=== PATIENT | female | born 1975 | race American Indian/Alaskan Native ===

== ENCOUNTER 2021-10-07 22:30 | Emergency (ER) | payer MEDICARE ==
--- NOTE | 2021-10-08 06:47 | Emergency Department Report ---
HPI - General Chief Complaint: Sickle Cell Crisis - HPI HPI: Room 38 The patient is a 46-year-old female present with chief complaint of sickle cell pain. Patient has a history of sickle cell disease and states approximate 2 days ago she developed pain in both of her thighs. Patient states the pain is consistent with her previous sickle cell pain crises. Patient gives her pain a score of 9/10. Patient denies history of fever ED Past Medical Hx - Past Medical History Previous Medical History?: Yes Hx Sickle Cell Disease: Yes - Surgical History Additional Surgical History: , port - Family History Family history: no significant - Social History Smoking Status: Current Every Day Smoker (1 pack/day) Substance Use Type: None (Denies illicit drug use), Alcohol (Occasional) - Medications Home Medications: Home Medications Medication Instructions Recorded Confirmed Last Taken Type HYDROcodone/APAP 5-325 [[place] 1 - 2 each PO Q6HR PRN #20 tablet 10/08/21 Unknown Rx 5/325] Ibuprofen [Motrin 800 MG tab] 800 mg PO Q8HR PRN #20 tablet 10/08/21 Unknown Rx ED Review of Systems ROS: Stated complaint: Sickle cell crisis, L leg pain Other details as noted in HPI Constitutional: denies: fever Eyes: denies: eye pain ENT: denies: throat pain Respiratory: no symptoms reported Cardiovascular: denies: chest pain Endocrine: no symptoms reported Gastrointestinal: denies: abdominal pain Genitourinary: denies: dysuria Musculoskeletal: denies: back pain Neurological: denies: headache Hematological/Lymphatic: other (Sickle cell pain crisis) Physical Exam - Physical Exam Vital Signs: Vital Signs 10/08/21 10/08/21 01:25 06:29 Temperature 98.3 F Pulse Rate 99 H 91 H Respiratory 16 17 Rate Blood Pressure 138/68 103/51 [Right] O2 Sat by Pulse 95 99 Oximetry Physical Exam: GENERAL: The patient is well-developed well-nourished female lying on stretcher not appearing to be in acute distress. [] HEENT: Normocephalic. Atraumatic. Extraocular motions are intact. Patient has moist mucous membranes. NECK: Supple. Trachea midline CHEST/LUNGS: Clear to auscultation. There is no respiratory distress noted. HEART/CARDIOVASCULAR: Regular. There is no tachycardia. There is no gallop rub or murmur. 2+ DPs bilateral ABDOMEN: Abdomen is soft, nontender. Patient has normal bowel sounds. There is no abdominal distention. SKIN: There is no rash. There is no edema. There is no diaphoresis. NEURO: The patient is awake, alert, and oriented. The patient is cooperative. The patient has no focal neurologic deficits. The patient has normal speech. GCS 15 MUSCULOSKELETAL: There is no evidence of acute injury. ED Course Vital Signs 10/08/21 10/08/21 01:25 06:29 Temperature 98.3 F Pulse Rate 99 H 91 H Respiratory 16 17 Rate Blood Pressure 138/68 103/51 [Right] O2 Sat by Pulse 95 99 Oximetry - Reevaluation(s) Reevaluation #1: 10/08/21 11:44 Patient states he feels okay ED Medical Decision Making - Lab Data Result diagrams: 10/08/21 Unknown 10/08/21 Unknown Laboratory Tests 10/08/21 10/08/21 10/08/21 10:09 Unknown Unknown WBC 12.0 H RBC 3.97 Hgb 10.2 Hct 31.0 MCV 78 L MCH 26 L MCHC 33 RDW 22.6 H Plt Count 204 Lymph % (Auto) 15.2 [place] % (Auto) 7.7 H Eos % (Auto) 2.2 Baso % (Auto) 0.5 Lymph # (Auto) 1.8 [place] # (Auto) 0.9 H Eos # (Auto) 0.3 Baso # (Auto) 0.1 Seg Neutrophils % 74.4 H Seg Neutrophils # 8.9 H Percent Retic 5.56 H Sodium 141 Potassium 4.5 Chloride 107.5 H Carbon Dioxide 22 Anion Gap 16 BUN 6 L Creatinine 0.4 L Estimated GFR > 60 BUN/Creatinine Ratio 15 Glucose 91 Calcium 8.6 HCG, Qual Urine Color Yellow Urine Turbidity Clear Urine pH 8.0 H Ur Specific [place] 1.008 Urine Protein <15 mg/dl Urine Glucose (UA) Neg Urine Ketones Neg Urine Blood Neg Urine Nitrite Neg Urine Bilirubin Neg Urine Urobilinogen < 2.0 Ur Leukocyte Esterase Neg Urine WBC (Auto) 1.0 Urine RBC (Auto) 1.0 U Epithel Cells (Auto) 2.0 10/08/21 Unknown WBC RBC Hgb Hct MCV MCH MCHC RDW Plt Count Lymph % (Auto) [place] % (Auto) Eos % (Auto) Baso % (Auto) Lymph # (Auto) [place] # (Auto) Eos # (Auto) Baso # (Auto) Seg Neutrophils % Seg Neutrophils # Percent Retic Sodium Potassium Chloride Carbon Dioxide Anion Gap BUN Creatinine Estimated GFR BUN/Creatinine Ratio Glucose Calcium HCG, Qual Negative Urine Color Urine Turbidity Urine pH Ur Specific [place] Urine Protein Urine Glucose (UA) Urine Ketones Urine Blood Urine Nitrite Urine Bilirubin Urine Urobilinogen Ur Leukocyte Esterase Urine WBC (Auto) Urine RBC (Auto) U Epithel Cells (Auto) - Differential Diagnosis Sickle cell pain crisis Critical care attestation.: If time is entered above; I have spent that time in minutes in the direct care of this critically ill patient, excluding procedure time. ED Disposition Clinical Impression: Sickle cell pain crisis Disposition: HOME / SELF CARE / HOMELESS Is pt being admited?: No Does the pt Need Aspirin: No Condition: Stable Additional Instructions: Return to the emergency department should you develop worsening symptoms, inability to tolerate food or liquids, high fever or any other concerns Prescriptions: Ibuprofen [Motrin 800 MG tab] 800 mg PO Q8HR PRN #20 tablet PRN Reason: Pain, Moderate (4-6) HYDROcodone/APAP 5-325 [[place] 5/325] 1 - 2 each PO Q6HR PRN #20 tablet PRN Reason: Pain Referrals: [facility] MD JACQUES [Primary Care Provider] - 3-5 Days HERMELINDO LOYOLA MD [Staff Physician] - 3-5 Days (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 Please follow-up with him for further evaluation) Time of Disposition: 11:47
[2021-10-08] MEDS ORDERED: D5W/0.2% NACL 1,000 ML IV SCH (07:00)
[2021-10-08 07:41] LABS: Basophils # (Auto) 0.1 K/mm3 (0.0-0.1); Basophils % (Auto) 0.5 % (0.0-1.8); Eosinophils # (Auto) 0.3 K/mm3 (0.0-0.4); Eosinophils % (Auto) 2.2 % (0.0-4.3); Hemoglobin 10.2 gm/dl (10.1-14.3); Lymphocytes # (Auto) 1.8 K/mm3 (1.2-5.4); Lymphocytes % (Auto) 15.2 % (13.4-35.0); Mean Corpuscular HGB Conc 33 % (30-34); Mean Corpuscular Volume 78 fl (79-97); Monocytes # (Auto) 0.9 K/mm3 (0.0-0.8); Monocytes % (Auto) 7.7 % (0.0-7.3); Platelet Count 204 K/mm3 (140-440); Red Blood Count 3.97 M/mm3 (3.65-5.03)
[2021-10-08 07:42] LABS: Red Cell Distribution Width 22.6 % (13.2-15.2)
[2021-10-08] MEDS ORDERED: HYDROmorphone 1 MG/1 ML INJ IV SCH (08:00)
[2021-10-08 08:21] LABS: Blood Urea Nitrogen 6 mg/dL (7-17); Calcium 8.6 mg/dL (8.4-10.2); Hemolysis Index 51
[2021-10-08 08:30] LABS: BUN/Creatinine Ratio 15
[2021-10-08] MEDS ORDERED: HYDROmorphone 1 MG/1 ML INJ IV ONE ×2 (08:45→10:27)
[2021-10-08] MEDS ORDERED: ONDANSETRON 4 MG/2 ML INJ ONE (08:53)
[2021-10-08] MEDS ORDERED: KETOROLAC 30 MG/1 ML INJ ONE (08:53)
[2021-10-08] MEDS ORDERED: ONDANSETRON 4 MG/2 ML INJ IV SCH (09:00)
[2021-10-08] MEDS ORDERED: KETOROLAC 30 MG/1 ML INJ IV SCH (09:00)
[2021-10-08] MEDS ORDERED: HEPARIN 5,000 UNIT/1 ML VIAL ONE (10:16)
[2021-10-08 10:41] LABS: Bilirubin,Urine NEG (Negative); Blood,Urine NEG (Negative); Color,Urine Yellow (Yellow); Protein,Urine <15 mg/dL mg/dL (Negative); Urobilinogen,Urine < 2.0 mg/dL (<2.0)
[2021-10-08 13:31] VITALS: BP 130/70
== END 2021-10-08 13:32 | disposition home or self-care (01) ==
LOC: ED 22:30
DX: D57.219 Sickle-cell/Hb-C disease with crisis, unspecified (principal); F17.200 Nicotine dependence, unspecified, uncomplicated
CPT/HCPCS: 36415; 80048; 81001; 84703; 85025; 85045; 96374; 96375; 96376; 99283; J1170; J1644; J1885; J2405; J7042

== ENCOUNTER 2021-10-09 20:48 | Inpatient (IN) | payer MEDICARE ==
--- NOTE | 2021-10-09 21:02 | Event Note ---
ED Screening Note Date of service: 10/09/21 Time: 21:01 ED Screening Note: Patient is a 46-year-old -German female with a history of sickle cell anemia and sickle cell pain presents to the ED with complaint of acute exacerbation of her chronic pain characterized by low back pain, bilateral leg pain and severe left foot pain for the last 2 days. Patient states that she has been taking her regular medications which include MS Contin, Percocet 10 mg - 325 mg tablets, and ibuprofen tablets with no relief. Patient denies dizziness, syncope, fever, chills, fall, nausea and vomiting, chest pain, shortness of breath, cough, abdominal pain, dysuria, urinary frequency and urgency, change in vision, numbness and tingling or weakness of upper and lower extremities bilaterally or headache. This initial assessment/diagnostic orders/clinical plan/treatment(s) is/are subject to change based on patients health status, clinical progression and re- assessment by fellow clinical providers in the ED. Further treatment and workup at subsequent clinical providers discretion. Patient/guardian urged not to elope from the ED as their condition may be serious if not clinically assessed and managed. Initial orders include: CBC, CMP, reticulocyte count, chest x-ray, urinalysis
[2021-10-09 22:06] LABS: Bilirubin,Urine NEG (Negative); Blood,Urine NEG (Negative); Color,Urine Yellow (Yellow); Mucus,Urine FEW /HPF; Protein,Urine <15 mg/dL mg/dL (Negative); Urobilinogen,Urine < 2.0 mg/dL (<2.0)
[2021-10-09] MEDS ORDERED: diphenhydrAMINE 50 MG/ML VIAL IV ONE (22:09)
[2021-10-09] MEDS ORDERED: ONDANSETRON 4 MG/2 ML INJ IV ONE (22:09)
[2021-10-09] MEDS ORDERED: HYDROmorphone 1 MG/1 ML INJ IV ONE (22:09)
--- NOTE | 2021-10-09 22:18 | XRay Report ---
XR chest routine 2V INDICATION / CLINICAL INFORMATION: Pain. COMPARISON: 08/07/2008 FINDINGS: SUPPORT DEVICES: Left upper extremity PICC terminates over the cavoatrial junction. HEART /PULMONARY VASCULATURE: No significant abnormality. LUNGS / PLEURA: No significant pulmonary or pleural abnormality. No pneumothorax. ADDITIONAL FINDINGS: Diffuse sclerosis of the osseous structures. There is abnormal sclerosis of the humeral heads, may reflect osteonecrosis. Findings may be seen with sickle cell disease or other oste odystrophy. IMPRESSION: No acute cardiopulmonary findings. Signer Name: Alejandro Eubanks MD Signed: 10/09/2021 10:13 PM Workstation Name: [id number]
--- NOTE | 2021-10-09 22:59 | Emergency Department Report ---
ED General Adult HPI - General Chief complaint: Sickle Cell Crisis Stated complaint: SWOLLEN LEGS Time Seen by Provider: 10/09/21 21:54 Source: patient Mode of arrival: Ambulatory Limitations: No Limitations - History of Present Illness Initial comments: 46-year-old female with a past medical history of sickle cell SC presents to the hospital with complaints of pain secondary to sickle cell crisis. Patient was seen here on the with similar symptoms. Patient complaining of 10/10 pain to the upper back, bilateral legs, and left ankle swelling. Patient has a history of left ankle fractures status post repair. She states symptoms are typical of sickle cell crisis. She denies fever, chest pain, shortness of breath. She is currently taking MS Contin, Percocet, Phenergan, and Motrin without relief. Patient was seen here yesterday for the same symptoms and got better after 3 doses Dilaudid 1 mg and additional medications. She returns bec ause she continues to have significant pain. Patient's triage licensed practical nurse are affiliated with [facility] and she has another appointment scheduled for November. She is currently in the process of finding a alternative triage licensed practical nurse but is still able to receive her medication refills from her [facility] physicians. Patient does have a port to left arm - Related Data Previous Rx's Medication Instructions Recorded Last Taken Type HYDROcodone/APAP 5-325 [[place] 1 - 2 each PO Q6HR PRN #20 tablet 10/08/21 Unknown Rx 5/325] Ibuprofen [Motrin 800 MG tab] 800 mg PO Q8HR PRN #20 tablet 10/08/21 Unknown Rx Allergies Allergy/AdvReac Type Severity Reaction Status Date / Time No Known Allergies Allergy Verified 10/08/21 08:30 ED Review of Systems ROS: Stated complaint: SWOLLEN LEGS Other details as noted in HPI Comment: All other systems reviewed and negative ED Past Medical Hx - Past Medical History Hx Sickle Cell Disease: Yes - Surgical History Additional Surgical History: , port - Social History Smoking Status: Current Every Day Smoker Substance Use Type: None - Medications Home Medications: Home Medications Medication Instructions Recorded Confirmed Last Taken Type HYDROcodone/APAP 5-325 [[place] 1 - 2 each PO Q6HR PRN #20 tablet 10/08/21 Unknown Rx 5/325] Ibuprofen [Motrin 800 MG tab] 800 mg PO Q8HR PRN #20 tablet 10/08/21 Unknown Rx ED Physical Exam - General Limitations: No Limitations - Other Other exam information: General: No acute distress Head: Atraumatic Eyes: normal appearance ENT: Moist mucous membranes Neck: Normal appearance, no midline tenderness Chest: Clear to auscultation bilaterally CV: Regular rate and rhythm Abdomen: Soft, normal bowel sounds, nontender, nondistended, no rebound or guarding Back: Normal inspection, nonpainful to touch Extremity: Left ankle surgical scar noted, diffuse left ankle and foot swelling without warmth or erythema Neuro: Alert O x 3, no facial asymmetry, speech clear, no gross motor sensory deficit Psych: Appropriate behavior Skin: No rash ED Course Vital Signs 10/09/21 10/09/21 10/09/21 20:52 23:43 23:45 Temperature 97.5 F L Pulse Rate 98 H Respiratory 18 Rate Blood Pressure 128/72 97/54 97/54 O2 Sat by Pulse 99 100 Oximetry 10/10/21 10/10/21 10/10/21 00:01 00:15 00:31 Temperature Pulse Rate Respiratory Rate Blood Pressure 90/44 90/44 89/34 O2 Sat by Pulse 100 98 100 Oximetry 10/10/21 10/10/21 10/10/21 01:15 01:31 01:45 Temperature Pulse Rate Respiratory Rate Blood Pressure 96/42 85/40 91/47 O2 Sat by Pulse 98 99 99 Oximetry 10/10/21 10/10/21 10/10/21 02:15 02:31 02:45 Temperature Pulse Rate Respiratory Rate Blood Pressure 97/37 92/51 84/45 O2 Sat by Pulse 99 100 100 Oximetry 10/10/21 10/10/21 10/10/21 03:01 03:15 03:31 Temperature Pulse Rate Respiratory Rate Blood Pressure 83/42 82/40 82/42 O2 Sat by Pulse 98 98 99 Oximetry 10/10/21 10/10/21 10/10/21 03:45 04:01 04:15 Temperature Pulse Rate Respiratory Rate Blood Pressure 84/44 90/49 90/54 O2 Sat by Pulse 98 99 100 Oximetry - Reevaluation(s) Reevaluation #1: 10/10/21 04:31 Resting in supine patient is BP systolic in the 90s. Patient was arousable and ambulated to the bathroom. Upon return her systolic pressure 106. She was provided a third dose of Dilaudid due to persistent pain. She will be admitted to the hospitalist service for further management ED Medical Decision Making - Lab Data Result diagrams: 10/09/21 23:38 10/09/21 23:38 Lab Results 10/09/21 10/09/21 10/09/21 Range/Units 23:38 23:38 23:38 WBC 11.4 H (4.5-11.0) K/mm3 RBC 4.05 (3.65-5.03) M/mm3 Hgb 10.5 (10.1-14.3) gm/dl Hct 31.5 (30.3-42.9) % MCV 78 L (79-97) fl MCH 26 L (28-32) pg MCHC 33 (30-34) % RDW 22.6 H (13.2-15.2) % Plt Count 223 (140-440) K/mm3 Lymph % (Auto) 18.9 (13.4-35.0) % [place] % (Auto) 5.9 (0.0-7.3) % Eos % (Auto) 2.8 (0.0-4.3) % Baso % (Auto) 1.2 (0.0-1.8) % Lymph # (Auto) 2.1 (1.2-5.4) K/mm3 [place] # (Auto) 0.7 (0.0-0.8) K/mm3 Eos # (Auto) 0.3 (0.0-0.4) K/mm3 Baso # (Auto) 0.1 (0.0-0.1) K/mm3 Seg Neutrophils % 71.2 H (40.0-70.0) % Seg Neutrophils # 8.1 H (1.8-7.7) K/mm3 Percent Retic 5.02 H (0.78-2.58) % Sodium 139 (137-145) mmol/L Potassium 3.8 (3.6-5.0) mmol/L Chloride 103.9 (98-107) mmol/L Carbon Dioxide 24 (22-30) mmol/L Anion Gap 15 mmol/L BUN 11 (7-17) mg/dL Creatinine 0.5 L (0.6-1.2) mg/dL Estimated GFR > 60 ml/min BUN/Creatinine Ratio 22 % Glucose 106 H (65-100) mg/dL Calcium 8.5 (8.4-10.2) mg/dL Total Bilirubin 1.10 (0.1-1.2) mg/dL AST 26 (5-40) units/L ALT 15 (7-56) units/L Alkaline Phosphatase 117 (35-129) units/L Total Protein 7.2 (6.3-8.2) g/dL Albumin 4.2 (3.9-5) g/dL Albumin/Globulin Ratio 1.4 % HCG, Qual Negative (Negative) Urine Color (Yellow) Urine Turbidity (Clear) Urine pH (5.0-7.0) Ur Specific [place] (1.003-1.030) Urine Protein (Negative) mg/dL Urine Glucose (UA) (Negative) mg/dL Urine Ketones (Negative) mg/dL Urine Blood (Negative) Urine Nitrite (Negative) Urine Bilirubin (Negative) Urine Urobilinogen (<2.0) mg/dL Ur Leukocyte Esterase (Negative) Urine WBC (Auto) (0.0-6.0) /HPF Urine RBC (Auto) (0.0-6.0) /HPF U Epithel Cells (Auto) (0-13.0) /HPF Urine Mucus /HPF 10/09/21 Range/Units Unknown WBC (4.5-11.0) K/mm3 RBC (3.65-5.03) M/mm3 Hgb (10.1-14.3) gm/dl Hct (30.3-42.9) % MCV (79-97) fl MCH (28-32) pg MCHC (30-34) % RDW (13.2-15.2) % Plt Count (140-440) K/mm3 Lymph % (Auto) (13.4-35.0) % [place] % (Auto) (0.0-7.3) % Eos % (Auto) (0.0-4.3) % Baso % (Auto) (0.0-1.8) % Lymph # (Auto) (1.2-5.4) K/mm3 [place] # (Auto) (0.0-0.8) K/mm3 Eos # (Auto) (0.0-0.4) K/mm3 Baso # (Auto) (0.0-0.1) K/mm3 Seg Neutrophils % (40.0-70.0) % Seg Neutrophils # (1.8-7.7) K/mm3 Percent Retic (0.78-2.58) % Sodium (137-145) mmol/L Potassium (3.6-5.0) mmol/L Chloride (98-107) mmol/L Carbon Dioxide (22-30) mmol/L Anion Gap mmol/L BUN (7-17) mg/dL Creatinine (0.6-1.2) mg/dL Estimated GFR ml/min BUN/Creatinine Ratio % Glucose (65-100) mg/dL Calcium (8.4-10.2) mg/dL Total Bilirubin (0.1-1.2) mg/dL AST (5-40) units/L ALT (7-56) units/L Alkaline Phosphatase (35-129) units/L Total Protein (6.3-8.2) g/dL Albumin (3.9-5) g/dL Albumin/Globulin Ratio % HCG, Qual (Negative) Urine Color Yellow (Yellow) Urine Turbidity Clear (Clear) Urine pH 5.0 (5.0-7.0) Ur Specific [place] 1.014 (1.003-1.030) Urine Protein <15 mg/dl (Negative) mg/dL Urine Glucose (UA) Neg (Negative) mg/dL Urine Ketones Neg (Negative) mg/dL Urine Blood Neg (Negative) Urine Nitrite Neg (Negative) Urine Bilirubin Neg (Negative) Urine Urobilinogen < 2.0 (<2.0) mg/dL Ur Leukocyte Esterase Neg (Negative) Urine WBC (Auto) 5.0 (0.0-6.0) /HPF Urine RBC (Auto) 2.0 (0.0-6.0) /HPF U Epithel Cells (Auto) 5.0 (0-13.0) /HPF Urine Mucus Few /HPF - Radiology Data Radiology results: report reviewed XR chest routine 2V INDICATION / CLINICAL INFORMATION: Pain. COMPARISON: 08/07/2008 FINDINGS: SUPPORT DEVICES: Left upper extremity PICC terminates over the cavoatrial junction. HEART /PULMONARY VASCULATURE: No significant abnormality. LUNGS / PLEURA: No significant pulmonary or pleural abnormality. No pneumothorax. ADDITIONAL FINDINGS: Diffuse sclerosis of the osseous structures. There is abnormal sclerosis of the humeral heads, may reflect osteonecrosis. Findings may be seen with sickle cell disease or other osteodystrophy. IMPRESSION: No acute cardiopulmonary findings. - Medical Decision Making 46-year-old female presents to the hospital for the second day in a row due to persistent sickle cell related pain despite taking her home medications including MS Contin and Percocet. Patient follows with the [facility] but desires a new triage licensed practical nurse. Patient has elevated retake count with normal hemoglobin. No signs of infection, leukocytosis, or chest symptoms. Ch est x-ray unremarkable - Differential Diagnosis Anemia, sickle cell crisis Critical Care Time: No Critical care attestation.: If time is entered above; I have spent that time in minutes in the direct care of this critically ill patient, excluding procedure time. ED Disposition Clinical Impression: Sickle cell pain crisis, Intractable pain Disposition: ADMITTED INPATIENT Is pt being admited?: Yes Condition: Stable Time of Disposition: 04:33
[2021-10-09] MEDS ORDERED: D5W/0.2% NACL 1,000 ML IV SCH (23:00)
[2021-10-09] MEDS ORDERED: SODIUM CHLORIDE 0.9% 50 ML ONE (23:21)
[2021-10-09] MEDS: KETOROLAC 30 MG/1 ML INJ IV ONE ×2 (23:37→23:38)
[2021-10-10] LABS: Basophils # (Auto) 0.1 K/mm3 (0.0-0.1); Basophils % (Auto) 1.2 % (0.0-1.8); Eosinophils # (Auto) 0.3 K/mm3 (0.0-0.4); Eosinophils % (Auto) 2.8 % (0.0-4.3); Hematocrit 31.5 % (30.3-42.9); Hemoglobin 10.5 gm/dl (10.1-14.3); Lymphocytes # (Auto) 2.1 K/mm3 (1.2-5.4); Lymphocytes % (Auto) 18.9 % (13.4-35.0); Mean Corpuscular HGB Conc 33 % (30-34); Mean Corpuscular Volume 78 fl (79-97); Monocytes # (Auto) 0.7 K/mm3 (0.0-0.8); Monocytes % (Auto) 5.9 % (0.0-7.3); Platelet Count 223 K/mm3 (140-440); Red Blood Count 4.05 M/mm3 (3.65-5.03)
[2021-10-10 00:12] LABS: Alanine Aminotransferase 15 units/L (7-56); Albumin 4.2 g/dL (3.9-5); Blood Urea Nitrogen 11 mg/dL (7-17); Calcium 8.5 mg/dL (8.4-10.2); Hemolysis Index 2
[2021-10-10 00:17] LABS: BUN/Creatinine Ratio 22
[2021-10-10 01:03] LABS: Red Cell Distribution Width 22.6 % (13.2-15.2)
[2021-10-10] MEDS ORDERED: HYDROmorphone 1 MG/1 ML INJ IV ONE ×2 (01:07→04:31)
[2021-10-10] MEDS ORDERED: diphenhydrAMINE 50 MG/ML VIAL IV ONE (01:15)
[2021-10-10] MEDS ORDERED: MORPHINE 2 MG/1 ML INJ IV PRN (04:59)
[2021-10-10] MEDS ORDERED: ACETAMINOPHEN 325 MG TAB PO PRN (04:59)
[2021-10-10] MEDS ORDERED: ALBUTEROL 2.5 MG/3 ML NEBU IH PRN (04:59)
[2021-10-10] MEDS ORDERED: SODIUM CHLORIDE 0.45% 1000 ML 1,000 ML IV SCH (05:00)
--- NOTE | 2021-10-10 05:09 | History and Physical Report ---
History of Present Illness Date of examination: 10/10/21 Date of admission: 10/10/21 Chief complaint: Sickle cell crisis History of present illness: 46-year-old -[place] female with a history of sickle cell anemia and sickle cell pain presents to the ED with complaint of acute exacerbation of her chronic pain characterized by low back pain, bilateral leg pain and severe left foot pain for the last 2 days. Patient states that she has been taking her regular medications which include MS Contin, Percocet 10 mg - 325 mg tablets, and ibuprofen tablets with no relief. Patient denies dizziness, syncope, fever, chills, fall, nausea and vomiting, chest pain, shortness of breath, cough, abdominal pain, dysuria, urinary frequency and urgency, change in vision, numbness and tingling or weakness of upper and lower extremities bilaterally or headache. Patient's director of professional services are affiliated with [facility] and she has another appointment scheduled for November. She is currently in the process of finding a alternative director of professional services but is still able to receive her medication refills from her [facility] physicians. Patient does have a port to left arm In the emergency room patient hemoglobin is 10.5 hematocrit 31.5 and reticulocyte count is 5.02. She was going to admit the patient for pain management. Past History Past Medical History: other (Sickle cell crisis) Medications and Allergies Allergies Allergy/AdvReac Type Severity Reaction Status Date / Time No Known Allergies Allergy Verified 10/08/21 08:30 Home Medications Medication Instructions Recorded Confirmed Last Taken Type HYDROcodone/APAP 5-325 [[place] 1 - 2 each PO Q6HR PRN #20 tablet 10/08/21 Unknown Rx 5/325] Ibuprofen [Motrin 800 MG tab] 800 mg PO Q8HR PRN #20 tablet 10/08/21 Unknown Rx Active Meds: Active Medications Dextrose/Sodium Chloride (D5ns 0.2%) 1,000 mls @ 250 mls/hr IV DIRECT BIB Last Admin: 10/09/21 23:38 Dose: 250 mls/hr Review of Systems All systems: negative Musculoskeletal: other (10/10 pain to the upper back, bilateral legs, and left ankle swelling.) Exam - Constitutional Vitals: Temp Pulse Resp BP Pulse Ox 97.5 F L 98 H 20 106/68 100 10/09/21 20:52 10/09/21 20:52 10/10/21 04:38 10/10/21 04:30 10/10/21 04:30 General appearance: Present: no acute distress, well-nourished - EENT Eyes: Present: PERRL ENT: hearing intact, clear oral mucosa - Neck Neck: Present: supple, normal ROM - Respiratory Respiratory effort: normal Respiratory: bilateral: diminished - Cardiovascular Heart Sounds: Present: S1 & S2. Absent: rub, click - Extremities Extremities: pulses symmetrical, No edema Peripheral Pulses: within normal limits - Abdominal General gastrointestinal: Present: soft, non-tender, non-distended, normal bowel sounds Female genitourinary: Present: normal - Integumentary Integumentary: Present: clear, warm, dry - Musculoskeletal Musculoskeletal: gait normal, strength equal bilaterally - Psychiatric Psychiatric: appropriate mood/affect, intact judgment & insight - Neurologic Neurologic: CNII-XII intact, moves all extremities Results - Labs CBC & Chem 7: 10/09/21 23:38 10/09/21 23:38 Labs: Laboratory Last Values WBC 11.4 K/mm3 (4.5-11.0) H 10/09/21 23:38 RBC 4.05 M/mm3 (3.65-5.03) 10/09/21 23:38 Hgb 10.5 gm/dl (10.1-14.3) 10/09/21 23:38 Hct 31.5 % (30.3-42.9) 10/09/21 23:38 MCV 78 fl (79-97) L 10/09/21 23:38 MCH 26 pg (28-32) L 10/09/21 23:38 MCHC 33 % (30-34) 10/09/21 23:38 RDW 22.6 % (13.2-15.2) H 10/09/21 23:38 Plt Count 223 K/mm3 (140-440) 10/09/21 23:38 Lymph % (Auto) 18.9 % (13.4-35.0) 10/09/21 23:38 [place] % (Auto) 5.9 % (0.0-7.3) 10/09/21 23:38 Eos % (Auto) 2.8 % (0.0-4.3) 10/09/21 23:38 Baso % (Auto) 1.2 % (0.0-1.8) 10/09/21 23:38 Lymph # (Auto) 2.1 K/mm3 (1.2-5.4) 10/09/21 23:38 [place] # (Auto) 0.7 K/mm3 (0.0-0.8) 10/09/21 23:38 Eos # (Auto) 0.3 K/mm3 (0.0-0.4) 10/09/21 23:38 Baso # (Auto) 0.1 K/mm3 (0.0-0.1) 10/09/21 23:38 Seg Neutrophils % 71.2 % (40.0-70.0) H 10/09/21 23:38 Seg Neutrophils # 8.1 K/mm3 (1.8-7.7) H 10/09/21 23:38 Percent Retic 5.02 % (0.78-2.58) H 10/09/21 23:38 Sodium 139 mmol/L (137-145) 10/09/21 23:38 Potassium 3.8 mmol/L (3.6-5.0) 10/09/21 23:38 Chloride 103.9 mmol/L (98-107) 10/09/21 23:38 Carbon Dioxide 24 mmol/L (22-30) 10/09/21 23:38 Anion Gap 15 mmol/L 10/09/21 23:38 BUN 11 mg/dL (7-17) 10/09/21 23:38 Creatinine 0.5 mg/dL (0.6-1.2) L 10/09/21 23:38 Estimated GFR > 60 ml/min 10/09/21 23:38 BUN/Creatinine Ratio 22 % 10/09/21 23:38 Glucose 106 mg/dL (65-100) H 10/09/21 23:38 Calcium 8.5 mg/dL (8.4-10.2) 10/09/21 23:38 Total Bilirubin 1.10 mg/dL (0.1-1.2) 10/09/21 23:38 AST 26 units/L (5-40) 10/09/21 23:38 ALT 15 units/L (7-56) 10/09/21 23:38 Alkaline Phosphatase 117 units/L (35-129) 10/09/21 23:38 Total Protein 7.2 g/dL (6.3-8.2) 10/09/21 23:38 Albumin 4.2 g/dL (3.9-5) 10/09/21 23:38 Albumin/Globulin Ratio 1.4 % 10/09/21 23:38 HCG, Qual Negative (Negative) 10/09/21 23:38 Urine Color Yellow (Yellow) 10/09/21 Unknown Urine Turbidity Clear (Clear) 10/09/21 Unknown Urine pH 5.0 (5.0-7.0) 10/09/21 Unknown Ur Specific [place] 1.014 (1.003-1.030) 10/09/21 Unknown Urine Protein <15 mg/dl mg/dL (Negative) 10/09/21 Unknown Urine Glucose (UA) Neg mg/dL (Negative) 10/09/21 Unknown Urine Ketones Neg mg/dL (Negative) 10/09/21 Unknown Urine Blood Neg (Negative) 10/09/21 Unknown Urine Nitrite Neg (Negative) 10/09/21 Unknown Urine Bilirubin Neg (Negative) 10/09/21 Unknown Urine Urobilinogen < 2.0 mg/dL (<2.0) 10/09/21 Unknown Ur Leukocyte Esterase Neg (Negative) 10/09/21 Unknown Urine WBC (Auto) 5.0 /HPF (0.0-6.0) 10/09/21 Unknown Urine RBC (Auto) 2.0 /HPF (0.0-6.0) 10/09/21 Unknown U Epithel Cells (Auto) 5.0 /HPF (0-13.0) 10/09/21 Unknown Urine Mucus Few /HPF 10/09/21 Unknown Assessment and Plan VTE prophylaxis?: Chemical Plan of care discussed with patient/family: Yes - Patient Problems (1) Sickle cell pain crisis Current Visit: Yes Status: Acute Plan to address problem: Admitted patient to the [facility]. Put the patient on cardiac diet. Morphine 2 mg IV every 4 hours. Dilaudid 0.5 mg every 3 hours. Continue the home medication. Folic acid 1 mg p.o. daily. Outpatient follow-up with director of professional services (2) Intractable pain Current Visit: Yes Status: Acute Plan to address problem: Morphine 2 mg IV every 4 hours. Dilaudid 0.5 mg every 3 hours. Continue the home medication. Folic acid 1 mg p.o. daily. Outpatient follow-up with director of professional services (3) Tobacco abuse Current Visit: Yes Status: Acute Plan to address problem: Patient counseled regarding quitting smoking. If noted to be put on nicotine patch (4) DVT prophylaxis Current Visit: Yes Status: Acute Plan to address problem: Heparin 5000 units subcu every 12 hours for DVT prophylaxis. Pepcid 20 mg p.o. twice daily for GI prophylaxis. Patient is a full code
[2021-10-10] MEDS: IPRATROPIUM/ALBUTEROL SULFATE 3 ML AMPUL.NEB IH SCH ×3 (09:43→20:03)
[2021-10-10] MEDS ORDERED: NALOXONE 2 MG/2 ML INJ IV PRN (10:00)
[2021-10-10] MEDS ORDERED: HEPARIN 5,000 UNIT/1 ML VIAL SUB-Q SCH (10:00)
--- NOTE | 2021-10-10 10:13 | XRay Report ---
LEFT FOOT 2 VIEWS INDICATION: Assess for injury//lt foot pain. COMPARISON: None. IMPRESSION: There is mild distal soft tissue swelling. Bone mineralization appears borderline. No a cute osseous injury or significant joint pathology is detected. Signer Name: Aman Burgos Jr, MD Signed: 10/10/2021 10:08 AM Workstation Name: [id number]
[2021-10-10] MEDS: oxyCODONE /ACETAMINOPHEN 5-325MG TAB PO PRN (10:21)
[2021-10-10] MEDS: HYDROmorphone 1 MG/1 ML INJ IV PRN ×2 (10:21→19:11)
[2021-10-10] MEDS: MORPHINE 15 MG ER TAB PO SCH ×2 (11:29→22:00)
[2021-10-10] MEDS: FOLIC ACID 1 MG TAB PO SCH (11:37)
[2021-10-10] MEDS: HEPARIN 5,000 UNIT/1 ML VIAL SUB-Q SCH ×2 (11:39→19:10)
[2021-10-10] MEDS: FAMOTIDINE 20 MG TAB PO SCH ×2 (12:12→21:57)
--- NOTE | 2021-10-10 12:51 | Event Note ---
Date: 10/10/21 The patient was seen and evaluated this morning, and she was found to be hemodynamically stable. Adjustments were made to the patient's pain regimen in the setting of presumed sickle cell crisis. An x-ray of the left foot was performed due to significant swelling, and it was unremarkable for fracture.
[2021-10-11] MEDS: HYDROmorphone 1 MG/1 ML INJ IV PRN ×5 (00:43→16:44)
[2021-10-11] MEDS: ONDANSETRON 4 MG/2 ML INJ IV PRN ×2 (00:44→12:50)
[2021-10-11] MEDS: HEPARIN 5,000 UNIT/1 ML VIAL SUB-Q SCH ×2 (03:04→10:59)
[2021-10-11] MEDS: IPRATROPIUM/ALBUTEROL SULFATE 3 ML AMPUL.NEB IH SCH ×2 (04:59→09:38)
[2021-10-11] MEDS: oxyCODONE /ACETAMINOPHEN 5-325MG TAB PO PRN ×2 (07:51→16:52)
[2021-10-11 08:15] LABS: Blood Urea Nitrogen 9 mg/dL (7-17); Calcium 9.2 mg/dL (8.4-10.2); Hemolysis Index 26
[2021-10-11 08:22] LABS: BUN/Creatinine Ratio 18
[2021-10-11 09:56] LABS: Basophils # (Auto) 0.1 K/mm3 (0.0-0.1); Basophils % (Auto) 1.3 % (0.0-1.8); Eosinophils # (Auto) 0.2 K/mm3 (0.0-0.4); Eosinophils % (Auto) 2.1 % (0.0-4.3); Hematocrit 33.4 % (30.3-42.9); Hemoglobin 11.1 gm/dl (10.1-14.3); Lymphocytes # (Auto) 1.6 K/mm3 (1.2-5.4); Lymphocytes % (Auto) 17.5 % (13.4-35.0); Mean Corpuscular HGB Conc 33 % (30-34); Mean Corpuscular Volume 79 fl (79-97); Monocytes # (Auto) 0.5 K/mm3 (0.0-0.8); Monocytes % (Auto) 5.7 % (0.0-7.3); Platelet Count 227 K/mm3 (140-440); Red Blood Count 4.25 M/mm3 (3.65-5.03)
[2021-10-11 09:57] LABS: Red Cell Distribution Width 22.4 % (13.2-15.2)
[2021-10-11] MEDS: FOLIC ACID 1 MG TAB PO SCH (10:57)
[2021-10-11] MEDS: FAMOTIDINE 20 MG TAB PO SCH (10:57)
[2021-10-11] MEDS ORDERED: MORPHINE 15 MG ER TAB PO SCH (11:00)
[2021-10-11] MEDS: MORPHINE 15 MG ER TAB PO SCH (11:09)
[2021-10-11 13:12] VITALS: BP 107/69
== END 2021-10-11 19:00 | disposition home or self-care (01) | DRG 812 ==
LOC: ED 20:48 → 3A 10-10 05:00 → OBSVTOIN 10-10 12:09 → 3A 10-11 12:57
PROVIDERS: ADMIT Hospitalist; ATTEND Student in an Organized Health Care Education/Training Program
DX: D57.00 Hb-SS disease with crisis, unspecified (principal); Z20.822 Contact with and (suspected) exposure to COVID-19; F17.200 Nicotine dependence, unspecified, uncomplicated
CPT/HCPCS: 36415; 71046; 80048; 80053; 81001; 83010; 83615; 84703; 85025; 85045; 94640; 96374; 96375; 96376; 99283; 99285; G0378; J3490; J7042; J1170; J1200; J1644; J1885; J2405; J7030; U0003

== ENCOUNTER 2022-02-02 20:48 | Emergency (ER) | payer MEDICARE ==
[2022-02-03] MEDS ORDERED: SODIUM CHLORIDE 0.9% 1000 ML 1,000 ML IV ONE (03:34)
[2022-02-03] MEDS ORDERED: KETOROLAC 30 MG/1 ML INJ IV ONE ×2 (03:35→06:20)
[2022-02-03] MEDS ORDERED: diphenhydrAMINE 50 MG/ML VIAL IV ONE ×2 (03:35→06:20)
[2022-02-03] MEDS ORDERED: ACETAMINOPHEN 500 MG TAB PO ONE ×2 (03:35→06:20)
--- NOTE | 2022-02-03 04:08 | XRay Report ---
CHEST 2 VIEWS INDICATION / CLINICAL INFORMATION: sicke Cell crisis. COMPARISON: 10/09/2021 FINDINGS: SUPPORT DEVICES: Unchanged. HEART / MEDIASTINUM: No significant abnormality. LUNGS / PLEURA: No significant pulmonary or pleural abnormality. No pneumothorax. ADDITIONAL FINDINGS: No significant additional findings. IMPRESSION: 1. No acute findings. Signer Name: Nam Sanchez DO Signed: 02/03/2022 4:04 AM Workstation Name: [id number]
--- NOTE | 2022-02-03 04:13 | Emergency Department Report ---
ED General Adult HPI - General Chief complaint: Pain General Stated complaint: HURTING ALL OVER Time Seen by Provider: 02/03/22 04:04 Source: patient Mode of arrival: Ambulatory Limitations: No Limitations - History of Present Illness Initial comments: Patient 46-year-old female with history of sickle cell anemia. Patient states she is followed by sickle cell center at [facility]. Patient presents today for generalized body aches x3 days. Patient denies shortness of breath no dizziness or lightheadedness. There is been no fevers chills no productive cough. Patient denies history of chest syndrome. Current management includes MS Contin hydrocodone and fentanyl. Today's pain is rated at 5/10 achiness. Pain is relieved by nothing tried. Severity scale (0 -10): 10 - Related Data Previous Rx's Medication Instructions Recorded Last Taken Type HYDROcodone/APAP 5-325 [[place] 1 - 2 each PO Q6HR PRN #20 tablet 10/08/21 Unknown Rx 5/325] Ibuprofen [Motrin 800 MG tab] 800 mg PO Q8HR PRN #20 tablet 10/08/21 Unknown Rx Acetaminophen/Codeine [Tylenol 1 tab PO Q6H PRN #12 tab 02/03/22 Unknown Rx /Codeine # 3 tab] Ibuprofen [Motrin 800 MG tab] 800 mg PO Q8HR PRN #30 tablet 02/03/22 Unknown Rx diphenhydrAMINE [Benadryl CAP] 25 mg PO Q8HR PRN #30 capsule 02/03/22 Unknown Rx Allergies Allergy/AdvReac Type Severity Reaction Status Date / Time No Known Allergies Allergy Verified 10/08/21 08:30 ED Review of Systems ROS: Stated complaint: HURTING ALL OVER Other details as noted in HPI Constitutional: denies: chills, fever Eyes: denies: eye pain, eye discharge, vision change ENT: denies: ear pain, throat pain Respiratory: denies: cough, shortness of breath, wheezing Cardiovascular: denies: chest pain, palpitations Endocrine: no symptoms reported Gastrointestinal: denies: abdominal pain, nausea, vomiting, diarrhea Genitourinary: denies: urgency, dysuria, discharge Musculoskeletal: back pain, arthralgia. denies: joint swelling Skin: denies: rash, lesions Neurological: denies: headache, weakness, paresthesias Psychiatric: denies: anxiety, depression Hematological/Lymphatic: denies: easy bleeding, easy bruising ED Past Medical Hx - Past Medical History Hx Sickle Cell Disease: Yes - Surgical History Additional Surgical History: , port - Social History Smoking Status: Current Every Day Smoker Substance Use Type: None - Medications Home Medications: Home Medications Medication Instructions Recorded Confirmed Last Taken Type HYDROcodone/APAP 5-325 [[place] 1 - 2 each PO Q6HR PRN #20 tablet 10/08/21 U nknown Rx 5/325] Ibuprofen [Motrin 800 MG tab] 800 mg PO Q8HR PRN #20 tablet 10/08/21 Unknown Rx Acetaminophen/Codeine [Tylenol 1 tab PO Q6H PRN #12 tab 02/03/22 Unknown Rx /Codeine # 3 tab] Ibuprofen [Motrin 800 MG tab] 800 mg PO Q8HR PRN #30 tablet 02/03/22 Unknown Rx diphenhydrAMINE [Benadryl CAP] 25 mg PO Q8HR PRN #30 capsule 02/03/22 Unknown Rx ED Physical Exam - General Limitations: No Limitations General appearance: alert, in no apparent distress - Head Head exam: Present: normocephalic, normal inspection - Eye Eye exam: Present: PERRL, EOMI. Absent: conjunctival injection, nystagmus Pupils: Present: normal accommodation - ENT ENT exam: Present: mucous membranes moist, TM's normal bilaterally - Neck Neck exam: Present: normal inspection - Respiratory Respiratory exam: Present: normal lung sounds bilaterally. Absent: respiratory distress, wheezes, rales, rhonchi, stridor, chest wall tenderness - Cardiovascular Cardiovascular Exam: Present: regular rate, normal rhythm, normal heart sounds. Absent: systolic murmur, diastolic murmur, rubs, gallop - GI/Abdominal GI/Abdominal exam: Present: soft, normal bowel sounds. Absent: distended, tenderness, bruit, hernia - Rectal Rectal exam: Present: deferred - Extremities Exam Extremities exam: Present: normal inspection, full ROM, normal capillary refill. Absent: tenderness, pedal edema - Back Exam Back exam: Present: normal inspection. Absent: CVA tenderness (R), CVA tenderness (L) - Neurological Exam Neurological exam: Present: alert, oriented X3, CN II-XII intact, normal gait, reflexes normal. Absent: motor sensory deficit - Expanded Neurological Exam Expanded Patient oriented to: Present: person, place, time Speech: Present: fluid speech Motor strength exam: RUE: 5, LUE: 5, RLE: 5, LLE: 5 Best Eye Response ([place]): (4) open spontaneously Best Motor Response (Erasto): (6) obeys commands Best Verbal Response ([place]): (5) oriented [place] Total: 15 - Psychiatric Psychiatric exam: Present: normal affect, normal mood - Skin Skin exam: Present: warm, dry, intact, normal color. Absent: rash ED Course Vital Signs 02/02/22 22:42 Temperature 98.9 F Pulse Rate 94 H Respiratory 16 Rate Blood Pressure 125/71 [Right] O2 Sat by Pulse 96 Oximetry ED Medical Decision Making - Lab Data Result diagrams: 02/03/22 Unknown 02/03/22 Unknown Labs 02/03/22 02/03/22 Unknown Unknown WBC 11.6 H RBC 4.29 Hgb 11.2 Hct 32.7 MCV 76 L MCH 26 L MCHC 34 RDW 17.9 H Plt Count 157 Lymph % (Auto) 21.0 [place] % (Auto) 6.9 Eos % (Auto) 1.3 Baso % (Auto) 1.3 Lymph # (Auto) 2.4 [place] # (Auto) 0.8 Eos # (Auto) 0.1 Baso # (Auto) 0.2 H Seg Neutrophils % 69.5 Seg Neutrophils # 8.1 H Percent Retic 2.63 H Sodium 141 Potassium 3.8 Chloride 106.2 Carbon Dioxide 22 Anion Gap 17 BUN 8 Creatinine 0.4 L Estimated GFR > 60 BUN/Creatinine Ratio 20 Glucose 93 Calcium 8.7 Total Bilirubin 1.20 AST 20 ALT 10 Alkaline Phosphatase 84 Total Protein 6.9 Albumin 4.1 Albumin/Globulin Ratio 1.5 - Radiology Data Radiology results: report reviewed CHEST 2 VIEWS INDICATION / CLINICAL INFORMATION: sicke Cell crisis. COMPARISON: 10/09/2021 FINDINGS: SUPPORT DEVICES: Unchanged. HEART / MEDIASTINUM: No significant abnormality. LUNGS / PLEURA: No significant pulmonary or pleural abnormality. No pneumothorax. ADDITIONAL FINDINGS: No significant additional findings. IMPRESSION: 1. No acute findings. Signer Name: Nam Sanchez DO Signed: 02/03/2022 4:04 AM Workstation Name: [id number] Transcribed By: JENNIFER Dictated By: NAM SANCHEZ DO Electronically Authenticated By: NAM SANCHEZ DO Signed Date/Time: 02/03/22403 DD/ 2 TD/TT: - Medical Decision Making Chest x-ray negative no infiltrates no opacities patient declines IV. Ordered labs. Plan plan Benadryl, ibuprofen, follow-up with sickle cell clinic today at [facility]. . Critical care attestation.: If time is entered above; I have spent that time in minutes in the direct care of this critically ill patient, excluding procedure time. ED Disposition Clinical Impression: History of sickle cell anemia Disposition: HOME / SELF CARE / HOMELESS Is pt being admited?: No Does the pt Need Aspirin: No Condition: Stable Instructions: Sickle Cell Testing Additional Instructions: Follow-up with [facility] today. Take medications as prescribed, up with your primary doctor in 2 to 3 days. Return to emergency department should symptoms worsen. Prescriptions: diphenhydrAMINE [Benadryl CAP] 25 mg PO Q8HR PRN #30 capsule PRN Reason: sickel cell flare Ibuprofen [Motrin 800 MG tab] 800 mg PO Q8HR PRN #30 tablet PRN Reason: pain Acetaminophen/Codeine [Tylenol /Codeine # 3 tab] 1 tab PO Q6H PRN #12 tab PRN Reason: pain Referrals: [facility] [Outside] - 3-5 Days MATHIEU SOUZA MD [Referring] - 3-5 Days Forms: Work/School Release Form(ED) Time of Disposition: 06:29
[2022-02-03 05:54] LABS: Basophils # (Auto) 0.2 K/mm3 (0.0-0.1); Basophils % (Auto) 1.3 % (0.0-1.8); Eosinophils # (Auto) 0.1 K/mm3 (0.0-0.4); Eosinophils % (Auto) 1.3 % (0.0-4.3); Hematocrit 32.7 % (30.3-42.9); Hemoglobin 11.2 gm/dl (10.1-14.3); Lymphocytes # (Auto) 2.4 K/mm3 (1.2-5.4); Mean Corpuscular HGB Conc 34 % (30-34); Mean Corpuscular Volume 76 fl (79-97); Monocytes # (Auto) 0.8 K/mm3 (0.0-0.8); Monocytes % (Auto) 6.9 % (0.0-7.3); Platelet Count 157 K/mm3 (140-440); Red Blood Count 4.29 M/mm3 (3.65-5.03); Red Cell Distribution Width 17.9 % (13.2-15.2)
[2022-02-03 06:10] LABS: Alanine Aminotransferase 10 units/L (7-56); Albumin 4.1 g/dL (3.9-5); Blood Urea Nitrogen 8 mg/dL (7-17); Calcium 8.7 mg/dL (8.4-10.2); Hemolysis Index 29
[2022-02-03 06:13] LABS: BUN/Creatinine Ratio 20
[2022-02-03 09:30] VITALS: BP 126/82
== END 2022-02-03 09:30 | disposition home or self-care (01) ==
LOC: ED 20:48
DX: D57.1 Sickle-cell disease without crisis (principal); Z79.899 Other long term (current) drug therapy; F17.200 Nicotine dependence, unspecified, uncomplicated
CPT/HCPCS: 36415; 71046; 80053; 85025; 85045; 96361; 96374; 96375; 96376; 99284; J1200; J1642; J1885; J7030

== ENCOUNTER 2022-02-04 03:24 | Emergency (ER) | payer MEDICARE ==
[2022-02-04] MEDS ORDERED: SODIUM CHLORIDE 0.9% 1000 ML 1,000 ML IV ONE ×2 (07:32→11:45)
[2022-02-04] MEDS ORDERED: ONDANSETRON 4 MG/2 ML INJ IV ONE (07:32)
[2022-02-04] MEDS ORDERED: fentaNYL 100 MCG/2 ML INJ IV ONE (07:33)
--- NOTE | 2022-02-04 07:36 | Emergency Department Report ---
ED General Adult HPI - General Chief complaint: Sickle Cell Crisis Stated complaint: PAIN CRISIS Time Seen by Provider: 02/04/22 07:27 Source: patient Mode of arrival: Ambulatory Limitations: No Limitations - History of Present Illness Initial comments: Patient is 46-year-old female with history of sickle cell disease. Patient presented to the ER complaining of generalized body ache. Patient was seen here 2 days ago for similar symptoms and stated that her symptoms get better but it came back again. Patient denied any fever or chills. Patient stated that her pain is mostly to the shoulder back and lower extremities. She denied any chest pain or shortness of breath. - Related Data Previous Rx's Medication Instructions Recorded Last Taken Type HYDROcodone/APAP 5-325 [[place] 1 - 2 each PO Q6HR PRN #20 tablet 10/08/21 Unknown Rx 5/325] Ibuprofen [Motrin 800 MG tab] 800 mg PO Q8HR PRN #20 tablet 10/08/21 Unknown Rx Acetaminophen/Codeine [Tylenol 1 tab PO Q6H PRN #12 tab 02/03/22 Unknown Rx /Codeine # 3 tab] Ibuprofen [Motrin 800 MG tab] 800 mg PO Q8HR PRN #30 tablet 02/03/22 Unknown Rx diphenhydrAMINE [Benadryl CAP] 25 mg PO Q8HR PRN #30 capsule 02/03/22 Unknown Rx Allergies Allergy/AdvReac Type Severity Reaction Status Date / Time No Known Allergies Allergy Verified 10/08/21 08:30 ED Review of Systems ROS: Stated complaint: PAIN CRISIS Other details as noted in HPI Comment: All other systems reviewed and negative Constitutional: denies: chills, fever Respiratory: denies: cough, shortness of breath, SOB with exertion, SOB at rest Cardiovascular: denies: chest pain, palpitations Gastrointestinal: denies: abdominal pain, nausea, vomiting, diarrhea, constipat ion, hematemesis, hematochezia Musculoskeletal: back pain, arthralgia, myalgia Neurological: denies: headache, weakness, numbness, paresthesias, confusion, abnormal gait ED Past Medical Hx - Past Medical History Hx Sickle Cell Disease: Yes - Surgical History Additional Surgical History: , port - Social History Smoking Status: Unknown if ever smoked - Medications Home Medications: Home Medications Medication Instructions Recorded Confirmed Last Taken Type HYDROcodone/APAP 5-325 [[place] 1 - 2 each PO Q6HR PRN #20 tablet 10/08/21 Unknown Rx 5/325] Ibuprofen [Motrin 800 MG tab] 800 mg PO Q8HR PRN #20 tablet 10/08/21 Unknown Rx Acetaminophen/Codeine [Tylenol 1 tab PO Q6H PRN #12 tab 02/03/22 Unknown Rx /Codeine # 3 tab] Ibuprofen [Motrin 800 MG tab] 800 mg PO Q8HR PRN #30 tablet 02/03/22 Unknown Rx diphenhydrAMINE [Benadryl CAP] 25 mg PO Q8HR PRN #30 capsule 02/03/22 Unknown Rx ED Physical Exam - General Limitations: No Limitations General appearance: alert, in no apparent distress - Head Head exam: Present: atraumatic, normocephalic, normal inspection - Eye Eye exam: Present: normal appearance - ENT ENT exam: Present: normal exam, normal orophraynx - Neck Neck exam: Present: normal inspection, full ROM. Absent: tenderness, meningismus - Respiratory Respiratory exam: Present: normal lung sounds bilaterally - Cardiovascular Cardiovascular Exam: Present: regular rate, normal rhythm, normal heart sounds - GI/Abdominal GI/Abdominal exam: Present: soft, normal bowel sounds. Absent: distended, tenderness, guarding, rebound, rigid, organomegaly, mass, bruit, pulsatile mass, hernia - Extremities Exam Extremities exam: Present: normal inspection, full ROM, normal capillary refill. Absent: tenderness - Back Exam Back exam: Present: normal inspection. Absent: CVA tenderness (R), CVA tenderness (L) - Neurological Exam Neurological exam: Present: alert, oriented X3, CN II-XII intact, normal gait, reflexes normal. Absent: motor sensory deficit - Psychiatric Psychiatric exam: Present: normal mood - Skin Skin exam: Present: warm, intact, normal color ED Course Vital Signs 02/04/22 03:31 Temperature 98.2 F Pulse Rate 83 Respiratory 18 Rate Blood Pressure 115/69 O2 Sat by Pulse 97 Oximetry ED Medical Decision Making - Lab Data Result diagrams: 02/04/22 07:32 02/04/22 07:32 - Medical Decision Making Patient is 46-year-old female with history of sickle cell disease. Patient presented to the ER complaining of generalized body ache. Patient was seen here 2 days ago for similar symptoms and stated that her symptoms get better but it came back again. Patient denied any fever or chills. Patient stated that her pain is mostly to the shoulder back and lower extremities. She denied any chest pain or shortness of breath. Patient received morphine, Zofran and normal saline. Patient stated that she is feeling much better. Labs reviewed and is unremarkable except for mild leukocytosis. Reticulocyte count is less than last admission. Patient advised to follow-up with her reconciling clerk in the next 2 to 3 days and to return to the ER if she develop any new symptoms. Critical care attestation.: If time is entered above; I have spent that time in minutes in the direct care of this critically ill patient, excluding procedure time. ED Disposition Clinical Impression: Sickle cell crisis Disposition: HOME / SELF CARE / HOMELESS Is pt being admited?: No Condition: Stable Instructions: Hemolytic Anemia Referrals: PRIMARY CARE, [Primary Care Provider] - 3-5 Days
[2022-02-04] MEDS ORDERED: MORPHINE 4 MG/1 ML INJ IV ONE (08:07)
[2022-02-04 08:47] LABS: Basophils # (Auto) 0.1 K/mm3 (0.0-0.1); Basophils % (Auto) 0.6 % (0.0-1.8); Eosinophils # (Auto) 0.4 K/mm3 (0.0-0.4); Hematocrit 30.9 % (30.3-42.9); Hemoglobin 10.6 gm/dl (10.1-14.3); Lymphocytes # (Auto) 3.5 K/mm3 (1.2-5.4); Lymphocytes % (Auto) 25.9 % (13.4-35.0); Mean Corpuscular HGB Conc 34 % (30-34); Mean Corpuscular Volume 77 fl (79-97); Monocytes # (Auto) 0.8 K/mm3 (0.0-0.8); Monocytes % (Auto) 6.1 % (0.0-7.3); Platelet Count 209 K/mm3 (140-440); Red Blood Count 4.04 M/mm3 (3.65-5.03)
[2022-02-04 09:02] LABS: Alanine Aminotransferase 9 units/L (7-56); Bilirubin,Direct 0.2 mg/dL (0-0.2); Blood Urea Nitrogen 8 mg/dL (7-17); Calcium 8.4 mg/dL (8.4-10.2); Hemolysis Index 7
[2022-02-04 09:41] LABS: BUN/Creatinine Ratio 13
[2022-02-04] MEDS ORDERED: MORPHINE 2 MG/1 ML INJ ONE (11:19)
[2022-02-04 13:59] VITALS: BP 118/76
== END 2022-02-04 13:58 | disposition home or self-care (01) ==
LOC: ED 03:24
DX: D57.00 Hb-SS disease with crisis, unspecified (principal); Z79.899 Other long term (current) drug therapy
CPT/HCPCS: 36415; 80048; 80076; 84703; 85025; 85045; 96361; 96374; 96375; 99283; J2270; J2405; J7030; J3010

== ENCOUNTER 2022-02-15 17:28 | Emergency (ER) | payer MEDICARE ==
[2022-02-15 18:12] VITALS: BP 115/68
== END 2022-02-16 03:45 | disposition left against medical advice (07) ==
LOC: ED 17:28
DX: M25.579 Pain in unspecified ankle and joints of unspecified foot (principal); M79.89 Other specified soft tissue disorders; Z53.21 Procedure and treatment not carried out due to patient leaving prior to being seen by health care provider

== ENCOUNTER 2022-04-23 23:15 | Emergency (ER) | payer MEDICARE ==
--- NOTE | 2022-04-24 07:53 | Emergency Department Report ---
ED General Adult HPI - General Chief complaint: Sickle Cell Crisis Stated complaint: SICKLE CELL PAIN PUI?: No Time Seen by Provider: 04/24/22 07:30 Source: patient Mode of arrival: Ambulatory Limitations: No Limitations - History of Present Illness Initial comments: 46 yo comes to ER with acute back pain and body aches; pt has hx SSD. She has port in [place]. - Related Data Previous Rx's Medication Instructions Recorded Last Taken Type HYDROcodone/APAP 5-325 [[place] 1 - 2 each PO Q6HR PRN #20 tablet 10/08/21 1 Day Ago Rx 5-325 mg TAB] ~02/15/22 Ibuprofen [Motrin 800 MG tab] 800 mg PO Q8HR PRN #20 tablet 10/08/21 1 Day Ago Rx ~02/15/22 Acetaminophen/Codeine [Tylenol 1 tab PO Q6H PRN #12 tab 02/03/22 1 Day Ago Rx /Codeine # 3 tab] ~02/15/22 Ibuprofen [Motrin 800 MG tab] 800 mg PO Q8HR PRN #30 tablet 02/03/22 1 Day Ago Rx ~02/15/22 diphenhydrAMINE [Benadryl CAP] 25 mg PO Q8HR PRN #30 capsule 02/18/22 Unknown Rx oxyCODONE /ACETAMINOPHEN [Percocet 1 tab PO Q6H PRN #10 tablet 02/18/22 Unknown Rx 5/325 mg] Allergies Allergy/AdvReac Type Severity Reaction Status Date / Time No Known Allergies Allergy Verified 04/24/22 00:33 ED Review of Systems ROS: Stated complaint: SICKLE CELL PAIN Other details as noted in HPI Comment: All other systems reviewed and negative ED Past Medical Hx - Past Medical History Previous Medical History?: Yes Hx Sickle Cell Disease: Yes - Surgical History Past Surgical History?: Yes Additional Surgical History: , port - Social History Smoking Status: Never Smoker Substance Use Type: None - Medications Home Medications: Home Medications Medication Instructions Recorded Confirmed Last Taken Type HYDROcodone/APAP 5-325 [[place] 1 - 2 each PO Q6HR PRN #20 tablet 10/08/21 02/16/22 1 Day Ago Rx 5-325 mg TAB] ~02/15/22 Ibuprofen [Motrin 800 MG tab] 800 mg PO Q8HR PRN #20 tablet 10/08/21 02/16/22 1 Day Ago Rx ~05/25/22 Acetaminophen/Codeine [Tylenol 1 tab PO Q6H PRN #12 tab 02/03/22 02/16/22 1 Day Ago Rx /Codeine # 3 tab] ~02/15/22 Ibuprofen [Motrin 800 MG tab] 800 mg PO Q8HR PRN #30 tablet 02/03/22 02/16/22 1 Day Ago Rx ~02/15/22 diphenhydrAMINE [Benadryl CAP] 25 mg PO Q8HR PRN #30 capsule 02/18/22 Unknown Rx oxyCODONE /ACETAMINOPHEN [Percocet 1 tab PO Q6H PRN #10 tablet 02/18/22 Unknown Rx 5/325 mg] ED Physical Exam - General Limitations: No Limitations General appearance: alert, in no apparent distress - Head Head exam: Present: atraumatic, normocephalic - Eye Eye exam: Present: normal appearance - ENT ENT exam: Present: mucous membranes moist - Neck Neck exam: Present: normal inspection - Respiratory Respiratory exam: Present: normal lung sounds bilaterally. Absent: respiratory distress - Cardiovascular Cardiovascular Exam: Present: regular rate, normal rhythm. Absent: systolic murmur, diastolic murmur, rubs, gallop - GI/Abdominal GI/Abdominal exam: Present: soft, normal bowel sounds - Extremities Exam Extremities exam: Present: normal inspection - Back Exam Back exam: Present: normal inspection - Neurological Exam Neurological exam: Present: alert, oriented X3 - Psychiatric Psychiatric exam: Present: normal affect, normal mood - Skin Skin exam: Present: warm, dry, intact, normal color. Absent: rash ED Course Vital Signs 04/24/22 00:28 Temperature 99.3 F Pulse Rate 106 H Respiratory 18 Rate Blood Pressure 116/53 [Left] O2 Sat by Pulse 98 Oximetry - Reevaluation(s) Reevaluation #1: 04/24/22 11:06 Labs have been drawn and we are waiting on a ER made bed for patient treatment ED Medical Decision Making - Lab Data Result diagrams: 04/24/22 07:53 04/24/22 07:53 - Medical Decision Making Lab Results 04/24/22 04/24/22 Range/Units 07:53 07:53 WBC 9.9 (4.5-11.0) K/mm3 RBC 3.97 (3.65-5.03) M/mm3 Hgb 10.5 (10.1-14.3) gm/dl Hct 30.6 (30.3-42.9) % MCV 77 L (79-97) fl MCH 27 L (28-32) pg MCHC 35 H (30-34) % RDW 18.9 H (13.2-15.2) % Plt Count 212 (140-440) K/mm3 [place] % (Auto) [employer] Percent Retic 3.17 H (0.78-2.58) % Sodium 135 L (137-145) mmol/L Potassium 4.4 (3.6-5.0) mmol/L Chloride 101.6 (98-107) mmol/L Carbon Dioxide 23 (22-30) mmol/L Anion Gap 15 mmol/L BUN 6 L (7-17) mg/dL Creatinine 0.4 L (0.6-1.2) mg/dL Estimated GFR > 60 ml/min BUN/Creatinine Ratio 15 % Glucose 78 (65-100) mg/dL Calcium 9.2 (8.4-10.2) mg/dL Total Bilirubin 1.70 H (0.1-1.2) mg/dL AST 30 (5-40) units/L ALT 13 (7-56) units/L Alkaline Phosphatase 68 (35-129) units/L Troponin T < 0.010 (0.00-0.029) ng/mL Total Protein 7.4 (6.3-8.2) g/dL Albumin 4.7 (3.9-5) g/dL Albumin/Globulin Ratio 1.7 % Vital Signs 04/24/22 00:28 Temperature 99.3 F Pulse Rate 106 H Respiratory 18 Rate Blood Pressure 116/53 [Left] O2 Sat by Pulse 98 Oximetry Critical care attestation.: If time is entered above; I have spent that time in minutes in the direct care of this critically ill patient, excluding procedure time. ED Disposition Clinical Impression: Pain Disposition: 30 STILL A PATIENT Is pt being admited?: No Does the pt Need Aspirin: No Condition: Stable Time of Disposition: 11:06
[2022-04-24 09:02] LABS: Hematocrit 30.6 % (30.3-42.9); Hemoglobin 10.5 gm/dl (10.1-14.3); Mean Corpuscular HGB Conc 35 % (30-34); Mean Corpuscular Volume 77 fl (79-97); Platelet Count 212 K/mm3 (140-440); Red Blood Count 3.97 M/mm3 (3.65-5.03); Red Cell Distribution Width 18.9 % (13.2-15.2)
[2022-04-24 09:21] LABS: Alanine Aminotransferase 13 units/L (7-56); Albumin 4.7 g/dL (3.9-5); Blood Urea Nitrogen 6 mg/dL (7-17); Calcium 9.2 mg/dL (8.4-10.2); Hemolysis Index 80
[2022-04-24 09:25] LABS: BUN/Creatinine Ratio 15
[2022-04-24 11:41] LABS: Basophils % (Manual) 0 % (0.0-1.8); Total Cells Counted 100
[2022-04-24 11:42] LABS: Burr Cells Rare; Large Platelets Few; Platelet Estimate Consistent w Auto; Target Cells 3+
[2022-04-24] MEDS ORDERED: ONDANSETRON 4 MG/2 ML INJ IV ONE ×2 (17:28→18:00)
[2022-04-24] MEDS ORDERED: MORPHINE 4 MG/1 ML INJ IV ONE ×3 (17:28→20:14)
[2022-04-24] MEDS ORDERED: SODIUM CHLORIDE 0.9% 1000 ML 1,000 ML IV ONE (17:28)
[2022-04-24] MEDS ORDERED: KETOROLAC 30 MG/1 ML INJ IV ONE (20:16)
--- NOTE | 2022-04-24 20:16 | Emergency Department Report ---
ED General Adult HPI - General Chief complaint: Sickle Cell Crisis Stated complaint: SICKLE CELL PAIN PUI?: No Time Seen by Provider: 04/24/22 07:30 Source: patient Mode of arrival: Ambulatory Limitations: No Limitations - History of Present Illness Initial comments: Pt came in said she;s having sickle cell crisis, complaining of back and leg pain -: Gradual, days(s) Severity scale (0 -10): 0 Consistency: intermittent Improves with: none Treatments Prior to Arrival: none - Related Data Previous Rx's Medication Instructions Recorded Last Taken Type HYDROcodone/APAP 5-325 [[place] 1 - 2 each PO Q6HR PRN #20 tablet 10/08/21 1 Day Ago Rx 5-325 mg TAB] ~02/15/22 Ibuprofen [Motrin 800 MG tab] 800 mg PO Q8HR PRN #20 tablet 10/08/21 1 Day Ago Rx ~02/15/22 Acetaminophen/Codeine [Tylenol 1 tab PO Q6H PRN #12 tab 02/03/22 1 Day Ago Rx /Codeine # 3 tab] ~02/15/22 Ibuprofen [Motrin 800 MG tab] 800 mg PO Q8HR PRN #30 tablet 02/03/22 1 Day Ago Rx ~02/15/22 diphenhydrAMINE [Benadryl CAP] 25 mg PO Q8HR PRN #30 capsule 02/18/22 Unknown Rx oxyCODONE /ACETAMINOPHEN [Percocet 1 tab PO Q6H PRN #10 tablet 02/18/22 Unknown Rx 5/325 mg] Allergies Allergy/AdvReac Type Severity Reaction Status Date / Time No Known Allergies Allergy Verified 04/24/22 00:33 ED Review of Systems ROS: Stated complaint: SICKLE CELL PAIN Other details as noted in HPI Constitutional: denies: chills, fever Eyes: denies: eye pain, eye discharge, vision change ENT: denies: ear pain, throat pain Respiratory: denies: cough, shortness of breath, wheezing Cardiovascular: denies: chest pain, palpitations Endocrine: no symptoms reported Gastrointestinal: denies: abdominal pain, nausea, diarrhea Genitourinary: denies: urgency, dysuria, discharge Musculoskeletal: denies: back pain, joint swelling, arthralgia Skin: denies: rash, lesions Neurological: denies: headache, weakness, paresthesias Psychiatric: denies: anxiety, depression Hematological/Lymphatic: denies: easy bleeding, easy bruising ED Past Medical Hx - Past Medical History Previous Medical History?: Yes Hx Hypertension: No Hx CVA: No Hx Sickle Cell Disease: Yes - Surgical History Past Surgical History?: Yes Additional Surgical History: , port - Social History Smoking Status: Never Smoker Substance Use Type: None - Medications Home Medications: Home Medications Medication Instructions Recorded Confirmed Last Taken Type HYDROcodone/APAP 5-325 [[place] 1 - 2 each PO Q6HR PRN #20 tablet 10/08/21 02/16/22 1 Day Ago Rx 5-325 mg TAB] ~02/15/22 Ibuprofen [Motrin 800 MG tab] 800 mg PO Q8HR PRN #20 tablet 10/08/21 02/16/22 1 Day Ago Rx ~02/15/22 Acetaminophen/Codeine [Tylenol 1 tab PO Q6H PRN #12 tab 02/03/22 02/16/22 1 Day Ago Rx /Codeine # 3 tab] ~02/15/22 Ibuprofen [Motrin 800 MG tab] 800 mg PO Q8HR PRN #30 tablet 02/03/22 02/16/22 1 Day Ago Rx ~02/15/22 diphenhydrAMINE [Benadryl CAP] 25 mg PO Q8HR PRN #30 capsule 02/18/22 Unknown Rx oxyCODONE /ACETAMINOPHEN [Percocet 1 tab PO Q6H PRN #10 tablet 02/18/22 Unknown Rx 5/325 mg] ED Physical Exam - General Limitations: No Limitations General appearance: alert, in no apparent distress - Head Head exam: Present: atraumatic, normocephalic - Eye Eye exam: Present: normal appearance - ENT ENT exam: Present: mucous membranes moist - Neck Neck exam: Present: normal inspection - Respiratory Respiratory exam: Present: normal lung sounds bilaterally. Absent: respiratory distress - Cardiovascular Cardiovascular Exam: Present: regular rate, normal rhythm. Absent: systolic murmur, diastolic murmur, rubs, gallop - GI/Abdominal GI/Abdominal exam: Present: soft, normal bowel sounds - Extremities Exam Extremities exam: Present: normal inspection - Back Exam Back exam: Present: normal inspection - Neurological Exam Neurological exam: Present: alert, oriented X3 - Psychiatric Psychiatric exam: Present: normal affect, normal mood - Skin Skin exam: Present: warm, dry, intact, normal color. Absent: rash ED Course Vital Signs 04/24/22 04/24/22 00:28 19:09 Temperature 99.3 F Pulse Rate 106 H 83 Respiratory 18 18 Rate Blood Pressure 116/53 109/70 [Left] O2 Sat by Pulse 98 100 Oximetry ED Medical Decision Making - Lab Data Result diagrams: 04/24/22 07:53 04/24/22 07:53 - Medical Decision Making work up showed stable anemia , pain meds given fluids vitally stable Critical care attestation.: If time is entered above; I have spent that time in minutes in the direct care of this critically ill patient, excluding procedure time. ED Disposition Clinical Impression: Sickle cell crisis Disposition: HOME / SELF CARE / HOMELESS Is pt being admited?: No Does the pt Need Aspirin: No Condition: Stable Instructions: Sickle Cell Testing Referrals: MD [facility] [Other] - 3-5 Days
[2022-04-24 20:41] VITALS: BP 111/64
== END 2022-04-24 20:51 | disposition home or self-care (01) ==
LOC: ED 23:15
DX: M79.18 Myalgia, other site (principal); M54.9 Dorsalgia, unspecified; M79.606 Pain in leg, unspecified; Z98.890 Other specified postprocedural states; Z79.899 Other long term (current) drug therapy
CPT/HCPCS: 36415; 80053; 84484; 85007; 85025; 85045; 96361; 96374; 96375; 96376; 99283; J1642; J1885; J2270; J7030

== ENCOUNTER 2022-04-24 16:35 | Emergency (ER) | payer MEDICARE ==
--- NOTE | 2022-04-24 16:50 | Emergency Department Report ---
ED General Adult HPI - General Stated complaint: SICKLE CELL CRISIS PUI?: No Source: patient Mode of arrival: Ambulatory Limitations: No Limitations - History of Present Illness Initial comments: 46 YO WHO LWOB FROM ER THIS AM COMES BACK WITH BACK AND LEG PAIN HX SCD SEE EMR FOR LABS NO CP OR SOB - Related Data Previous Rx's Medication Instructions Recorded Last Taken Type HYDROcodone/APAP 5-325 [[place] 1 - 2 each PO Q6HR PRN #20 tablet 10/08/21 1 Day Ago Rx 5-325 mg TAB] ~02/15/22 Ibuprofen [Motrin 800 MG tab] 800 mg PO Q8HR PRN #20 tablet 10/08/21 1 Day Ago Rx ~02/15/22 Acetaminophen/Codeine [Tylenol 1 tab PO Q6H PRN #12 tab 02/03/22 1 Day Ago Rx /Codeine # 3 tab] ~02/15/22 Ibuprofen [Motrin 800 MG tab] 800 mg PO Q8HR PRN #30 tablet 02/03/22 1 Day Ago Rx ~02/15/22 diphenhydrAMINE [Benadryl CAP] 25 mg PO Q8HR PRN #30 capsule 02/18/22 Unknown Rx oxyCODONE /ACETAMINOPHEN [Percocet 1 tab PO Q6H PRN #10 tablet 02/18/22 Unknown Rx 5/325 mg] Allergies Allergy/AdvReac Type Severity Reaction Status Date / Time No Known Allergies Allergy Verified 04/24/22 00:33 ED Review of Systems ROS: Stated complaint: SICKLE CELL CRISIS Other details as noted in HPI Comment: All other systems reviewed and negative ED Past Medical Hx - Past Medical History Previous Medical History?: Yes Hx Sickle Cell Disease: Yes - Surgical History Past Surgical History?: Yes Additional Surgical History: , port - Family History Family history: no significant - Social History Smoking Status: Never Smoker Substance Use Type: None - Medications Home Medications: Home Medications Medication Instructions Recorded Confirmed Last Taken Type HYDROcodone/APAP 5-325 [[place] 1 - 2 each PO Q6HR PRN #20 tablet 10/08/21 02/16/22 1 Day Ago Rx 5-325 mg TAB] ~02/15/22 Ibuprofen [Motrin 800 MG tab] 800 mg PO Q8HR PRN #20 tablet 10/08/21 02/16/22 1 Day Ago Rx ~02/15/22 Acetaminophen/Codeine [Tylenol 1 tab PO Q6H PRN #12 tab 02/03/22 02/16/22 1 Day Ago Rx /Codeine # 3 tab] ~02/15/22 Ibuprofen [Motrin 800 MG tab] 800 mg PO Q8HR PRN #30 tablet 02/03/22 02/16/22 1 Day Ago Rx ~02/15/22 diphenhydrAMINE [Benadryl CAP] 25 mg PO Q8HR PRN #30 capsule 02/18/22 Unknown Rx oxyCODONE /ACETAMINOPHEN [Percocet 1 tab PO Q6H PRN #10 tablet 02/18/22 Unknown Rx 5/325 mg] ED Physical Exam - General General appearance: alert, in no apparent distress - Head Head exam: Present: atraumatic, normocephalic - Eye Eye exam: Present: normal appearance - ENT ENT exam: Present: mucous membranes moist - Neck Neck exam: Present: normal inspection - Respiratory Respiratory exam: Present: normal lung sounds bilaterally. Absent: respiratory distress - Cardiovascular Cardiovascular Exam: Present: regular rate, normal rhythm. Absent: systolic murmur, diastolic murmur, rubs, gallop - GI/Abdominal GI/Abdominal exam: Present: soft, normal bowel sounds - Extremities Exam Extremities exam: Present: normal inspection - Back Exam Back exam: Present: normal inspection - Neurological Exam Neurological exam: Present: alert, oriented X3 - Psychiatric Psychiatric exam: Present: normal affect, normal mood - Skin Skin exam: Present: warm, dry, intact, normal color. Absent: rash ED Medical Decision Making - Medical Decision Making EMR REVIEWED FROM THIS AM VISIT PT LWBS SHE RETURNED THIS CORAL TO [facility] FOR EVAL Critical care attestation.: If time is entered above; I have spent that time in minutes in the direct care of this critically ill patient, excluding procedure time. ED Disposition Clinical Impression: Sickle cell crisis Disposition: 30 STILL A PATIENT Is pt being admited?: No Does the pt Need Aspirin: No Condition: Stable Time of Disposition: 16:51
[2022-04-24] MEDS ORDERED: SODIUM CHLORIDE 0.9% 1000 ML 1,000 ML ONE (17:55)
[2022-04-24] MEDS ORDERED: ONDANSETRON 4 MG/2 ML INJ ONE (17:55)
[2022-04-24] MEDS ORDERED: MORPHINE 4 MG/1 ML INJ ONE (17:55)
== END 2022-04-25 00:15 | disposition still patient (30) ==
LOC: ED 16:35
DX: D57.00 Hb-SS disease with crisis, unspecified (principal); I10 Essential (primary) hypertension; Z98.890 Other specified postprocedural states; Z79.899 Other long term (current) drug therapy
CPT/HCPCS: 99281; J2270; J2405; J7030

== ENCOUNTER 2022-04-29 00:36 | Emergency (ER) | payer MEDICARE ==
[2022-04-29] MEDS ORDERED: IBUPROFEN 600 MG TAB PO ONE (05:05)
--- NOTE | 2022-04-29 05:39 | Emergency Department Report ---
ED Extremity Problem HPI - General Chief complaint: Extremity Injury, Upper Stated complaint: BLISTERS Source: patient Mode of arrival: Ambulatory Limitations: No Limitations - History of Present Illness Initial comments: Patient is a 46-year-old -[place] female with a history of sickle cell disease who presents to the ED with complaint of acute onset nontraumatic right index finger pain due to swelling lesions for the last 3 months. Patient states that the pain is constant and persistent and worsned worsened in the last 5 days. Patient denies fever, chills, traumatic injury, dizziness, syncope, numbness and tingling or weakness of right hand, chest pain or shortness of breath. MD Complaint: extremity pain (right index finger pain due to a swollen lesion), extremity swelling (right index finger pain due to a swollen lesion) -: Gradual, month(s) (3) Location: right (index finger), upper extremity (right index finger) History of Same: Yes (chronic) -: Yes arthralgia (right index finger) Severity scale (0 -10): 3 Quality: aching, sharp Consistency: constant Improves with: nothing Worsens with: nothing Associated Symptoms: denies other symptoms, rash (swollen painful lesion on right index finger). denies: chest pain, shortness of breath, fever, myalgias, arthralgias - Related Data Previous Rx's Medication Instructions Recorded Last Taken Type HYDROcodone/APAP 5-325 [[place] 1 - 2 each PO Q6HR PRN #20 tablet 10/08/21 1 Day Ago Rx 5-325 mg TAB] ~02/15/22 Ibuprofen [Motrin 800 MG tab] 800 mg PO Q8HR PRN #20 tablet 10/08/21 1 Day Ago Rx ~02/15/22 Acetaminophen/Codeine [Tylenol 1 tab PO Q6H PRN #12 tab 02/03/22 1 Day Ago Rx /Codeine # 3 tab] ~02/15/22 diphenhydrAMINE [Benadryl CAP] 25 mg PO Q8HR PRN #30 capsule 02/18/22 Unknown Rx oxyCODONE /ACETAMINOPHEN [Percocet 1 tab PO Q6H PRN #10 tablet 02/18/22 Unknown Rx 5/325 mg] Ibuprofen [Motrin 800 MG tab] 800 mg PO Q8HR PRN #30 tablet 04/29/22 Unknown Rx Terbinafine (Nf) [LamiSIL] 250 mg PO QDAY #14 tablet 04/29/22 Unknown Rx Allergies Allergy/AdvReac Type Severity Reaction Status Date / Time No Known Allergies Allergy Verified 04/24/22 00:33 ED Review of Systems ROS: Stated complaint: BLISTERS Other details as noted in HPI Constitutional: denies: chills, fever Eyes: denies: eye pain, eye discharge, vision change ENT: denies: ear pain, throat pain Respiratory: denies: cough, shortness of breath, wheezing Cardiovascular: denies: chest pain, palpitations Endocrine: no symptoms reported Gastrointestinal: denies: abdominal pain, nausea, diarrhea Genitourinary: denies: urgency, dysuria, discharge Musculoskeletal: denies: back pain, joint swelling, arthralgia Skin: rash (swollen painful rash on right index finger), lesions Neurological: denies: headache, weakness, paresthesias Psychiatric: denies: anxiety, depression Hematological/Lymphatic: denies: easy bleeding, easy bruising ED Past Medical Hx - Past Medical History Hx Sickle Cell Disease: Yes - Surgical History Additional Surgical History: , port - Social History Smoking Status: Never Smoker Substance Use Type: None - Medications Home Medications: Home Medications Medication Instructions Recorded Confirmed Last Taken Type HYDROcodone/APAP 5-325 [[place] 1 - 2 each PO Q6HR PRN #20 tablet 10/08/21 02/16/22 1 Day Ago Rx 5-325 mg TAB] ~02/15/22 Ibuprofen [Motrin 800 MG tab] 800 mg PO Q8HR PRN #20 tablet 10/08/21 02/16/22 1 Day Ago Rx ~02/15/22 Acetaminophen/Codeine [Tylenol 1 tab PO Q6H PRN #12 tab 02/03/22 02/16/22 1 Day Ago Rx /Codeine # 3 tab] ~02/15/22 diphenhydrAMINE [Benadryl CAP] 25 mg PO Q8HR PRN #30 capsule 02/18/22 Unknown Rx oxyCODONE /ACETAMINOPHEN [Percocet 1 tab PO Q6H PRN #10 tablet 02/18/22 Unknown Rx 5/325 mg] Ibuprofen [Motrin 800 MG tab] 800 mg PO Q8HR PRN #30 tablet 04/29/22 Unknown Rx Terbinafine (Nf) [LamiSIL] 250 mg PO QDAY #14 tablet 04/29/22 Unknown Rx ED Physical Exam - General Limitations: No Limitations General appearance: alert, in no apparent distress - Head Head exam: Present: atraumatic, normocephalic, normal inspection - Eye Eye exam: Present: normal appearance, PERRL, EOMI Pupils: Present: normal accommodation - ENT ENT exam: Present: normal exam, normal orophraynx, mucous membranes moist, TM's normal bilaterally, normal external ear exam - Neck Neck exam: Present: normal inspection, full ROM. Absent: tenderness - Respiratory Respiratory exam: Present: normal lung sounds bilaterally. Absent: respiratory distress, wheezes, rales, rhonchi, stridor, chest wall tenderness, accessory muscle use, decreased breath sounds, prolonged expiratory - Cardiovascular Cardiovascular Exam: Present: regular rate, normal rhythm, normal heart sounds. Absent: systolic murmur, diastolic murmur, rubs, gallop - GI/Abdominal GI/Abdominal exam: Present: soft, normal bowel sounds. Absent: tenderness, guarding, hyperactive bowel sounds, mass - Extremities Exam Extremities exam: Present: normal inspection, full ROM, tenderness (palpable right index finger tenderness due to a swollen lesion), normal capillary refill. Absent: pedal edema, joint swelling, calf tenderness - Back Exam Back exam: Present: normal inspection, full ROM. Absent: tenderness, CVA tenderness (L), muscle spasm, paraspinal tenderness, vertebral tenderness - Neurological Exam Neurological exam: Present: alert, oriented X3, CN II-XII intact, normal gait, reflexes normal - Psychiatric Psychiatric exam: Present: normal affect, normal mood - Skin Skin exam: Present: warm, dry, intact, normal color, rash (swollen right index finger lesion) ED Course Vital Signs 04/29/22 04/29/22 01:14 05:20 Temperature 98.6 F Pulse Rate 88 Respiratory 18 16 Rate Blood Pressure 96/60 O2 Sat by Pulse 99 Oximetry ED Medical Decision Making - Medical Decision Making This is a 46-year-old -[place] female with a history of sickle cell disease who presents to the ED with complaint of acute onset nontraumatic right index finger pain due to swelling lesions for the last 3 months. Patient states that the pain is constant and persistent and worsned worsened in the last 5 days. In the ED, patient is alert and oriented x3 and is not in any distress. Patient was treated for pain in the ED and discharged home on medication based on the physical exam findings consistent with fungal infection of the right index finger. Patient was advised to follow-up with her primary care physician in 7 to 10 days for reevaluation. Patient advised return to the ED immediately if symptoms get worse. - Differential Diagnosis Fungal infection; viral warts; cellulitis; Critical care attestation.: If time is entered above; I have spent that time in minutes in the direct care of this critically ill patient, excluding procedure time. ED Disposition Clinical Impression: Tendinitis of finger of right hand, Onychomycosis Disposition: HOME / SELF CARE / HOMELESS Is pt being admited?: No Does the pt Need Aspirin: No Condition: Stable Instructions: Tendinitis, [id number], Fungal Nail Infection Additional Instructions: Take medication with food, drink plenty of fluids and follow-up with your primary care physician in 7 to 10 days for reevaluation. Return to the ED immediately if symptoms get worse. Prescriptions: Terbinafine (Nf) [LamiSIL] 250 mg PO QDAY #14 tablet Ibuprofen [Motrin 800 MG tab] 800 mg PO Q8HR PRN #30 tablet PRN Reason: pain Referrals: [facility] [Provider Group] - 7-10 days Time of Disposition: 05:42 Print Language: [id number]
[2022-04-29 07:32] VITALS: BP 112/76
== END 2022-04-29 06:20 | disposition home or self-care (01) ==
LOC: ED 00:36
DX: M79.644 Pain in right finger(s) (principal); B35.1 Tinea unguium; D57.1 Sickle-cell disease without crisis
CPT/HCPCS: 99282